=== PATIENT | female | born 1965 | race Caucasian/White ===

== ENCOUNTER 2017-06-11 08:10 | Outpatient (CLI) | payer BC | END 2017-06-11 08:11 | disposition home or self-care (01) | LOC: BICMAMMO 08:10 | PROVIDERS: ATTEND Obstetrics & Gynecology | DX: Z12.31 Encounter for screening mammogram for malignant neoplasm of breast (principal); Z80.3 Family history of malignant neoplasm of breast | CPT/HCPCS: 77063; 77067 ==

== ENCOUNTER 2019-06-09 15:37 | Outpatient (CLI) | payer BC ==
--- NOTE | 2019-06-09 16:32 | MMO ---
Bilateral MAMMO Bilat Screen [facility]. CLINICAL HISTORY: Patient is 53 years old and is seen for screening. The patient has the following family history of breast cancer: mother, at age 60. The patient has no personal history of cancer. VIEWS: The views performed were: bilateral craniocaudal with tomosynthesis; bilateral mediolateral oblique with tomosynthesis; and bilateral exaggerated craniocaudal. FILMS COMPARED: The present examination has been compared to prior imaging studies performed at [facility] on 09/09/2011, 07/18/2014 and 06/11/2017, and at [facility] on 01/04/2016. This study has been interpreted with the assistance of computer-aided detection. MAMMOGRAM FINDINGS: The breasts are heterogeneously dense, which could obscure a lesion on mammography. Benign calcifications are noted bilaterally. There are no suspicious masses, suspicious calcifications, or new areas of architectural distortion. IMPRESSION: THERE IS NO MAMMOGRAPHIC EVIDENCE OF MALIGNANCY. A ROUTINE FOLLOW-UP MAMMOGRAM IN 1 YEAR IS RECOMMENDED. THE RESULTS OF THIS EXAM WERE SENT TO THE PATIENT. ACR BI-RADS Category 2 - Benign finding MAMMOGRAPHY NOTE: 1. A negative mammogram report should not delay a biopsy if a dominant of clinically suspicious mass is present. 2. Approximately 10% to 15% of breast cancers are not detected by mammography. 3. Adenosis and dense breasts may obscure an underlying neoplasm. Reported by: CHARLES CHE MD Electonically Signed: [id number]
== END 2019-06-09 15:38 | disposition home or self-care (01) ==
LOC: BICMAMMO 15:37
PROVIDERS: ATTEND Internal Medicine
DX: Z12.31 Encounter for screening mammogram for malignant neoplasm of breast (principal); Z80.3 Family history of malignant neoplasm of breast
CPT/HCPCS: 77063; 77067

== ENCOUNTER 2019-08-26 09:48 | Outpatient (CLI) | payer BC ==
--- NOTE | 2019-08-26 11:01 | RAD ---
PA AND LATERAL VIEWS CHEST: Date: 08/26/2019 HISTORY: Atypical chest pain. FINDINGS: The heart size is normal. The lungs are expanded without focal areas of consolidation, pneumothoraces , or pleural effusions. IMPRESSION: No radiographic evidence of acute cardiopulmonary process. POS: C
== END 2019-08-26 09:49 | disposition home or self-care (01) ==
LOC: BICRAD 09:48
PROVIDERS: ATTEND Internal Medicine
DX: R07.89 Other chest pain (principal)
CPT/HCPCS: 71046

== ENCOUNTER 2020-11-26 11:08 | Outpatient (CLI) | payer BC | END 2020-11-26 11:09 | disposition home or self-care (01) | LOC: BICRAD 11:08 | PROVIDERS: ATTEND Internal Medicine | DX: R07.81 Pleurodynia (principal) | CPT/HCPCS: 72072 ==

== ENCOUNTER 2021-04-10 06:56 | Day surgery (SDC) | payer BC ==
[2021-04-03 14:28] VITALS: BMI 27.8
[2021-04-10] MEDS ORDERED: Fentanyl 100 MCG/2 ML VIAL ONE (07:19)
[2021-04-10] MEDS ORDERED: methylPREDNISolone Acetate 40 mg/ml Vial ONE (07:19)
[2021-04-10] MEDS ORDERED: PROPOFOL 200 MG/20 ML VIAL ONE (08:26)
[2021-04-10] MEDS ORDERED: Succinylcholine 200 MG/10 ml SYRINGE FS ONE (08:26)
[2021-04-10] MEDS ORDERED: Ondansetron PF 4 MG/2 ML Vial ONE (08:26)
[2021-04-10] MEDS ORDERED: Lidocaine 1% PF 5 ML VIAL ONE (08:26)
[2021-04-10] MEDS ORDERED: Dexamethasone 20 MG/5 ML VIAL ONE (08:26)
[2021-04-10] MEDS ORDERED: Ferric Subsulfate (ASTRINGYN) 8 GM VIAL ONE (08:34)
[2021-04-10] MEDS ORDERED: Hydrocodone-Acetamin 15 ML UDCUP ONE (10:15)
== END 2021-04-10 10:50 | disposition home or self-care (01) ==
LOC: SDC 06:56
PROVIDERS: ATTEND Otolaryngology Plastic Surgery within the Head & Neck
PROC: 0CTPXZZ Resection of Tonsils, External Approach (ICD-10-PCS; principal; 2021-04-10)
PROC: 0CTQXZZ Resection of Adenoids, External Approach (ICD-10-PCS; principal; 2021-04-10)
DX: J35.03 Chronic tonsillitis and adenoiditis (principal); K59.09 Other constipation; Z79.899 Other long term (current) drug therapy
CPT/HCPCS: 88304; J1100; J2405; J2704; J2920; J3010

== ENCOUNTER 2022-07-10 08:52 | Outpatient (CLI) | payer BC | END 2022-07-10 08:53 | disposition home or self-care (01) | LOC: BICMAMMO 08:52 | PROVIDERS: ATTEND Internal Medicine | DX: Z12.31 Encounter for screening mammogram for malignant neoplasm of breast (principal); Z80.3 Family history of malignant neoplasm of breast | CPT/HCPCS: 77063; 77067 ==